=== PATIENT | female | born 1955 | race Caucasian/White ===

== ENCOUNTER → 2021-05-25 | Outpatient (CLI) | payer BC, OTHER ==
[2021-05-25 14:37] VITALS: BP 162/79; PULSE 79; TEMP 98; BMI 37.0
--- NOTE | 2021-05-25 15:00 | P.HPBAR ---
Bariatric H&P - History & Physicial H&P Date: 05/25/21 History & Physicial: Visit/CC: initial clinic visit Patient initial contact: Initial weight: Initial weight in pounds: Height: 6 ft Initial BMI: Last weight: Current weight: 123.831 kg Current weight in pounds: 273.00 Current BMI: 37.0 [place] body weight (based on NIH guidelines): 72.575 kg Excess body weight loss: The patient is a 66 year-old F who presents for Bariatric Assessment. Patient here today for bariatric evaluation. Patient with BMI 37.0. Patient is interested in sleeve gastrectomy. Patient states she has suffered with this elevated weight most of her life. 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 fib, coronary artery disease, psoriasis, thyroid cancer, lymphoma. Patient with history of previous smoking of cigarettes now gaping occasionally. No history of DVT dysphagia or GERD symptoms. Surgical history includes lymph node biopsy and open cholecystectomy. Patient with previous history of cardiac catheterization with angioplasty. States she has not followed up with a giant tire repairer or had a stress test in many years. Review of Systems The patient denies any acute changes in vision or hearing, no dysphagia or odynophagia, no chest pain or shortness of breath, no dysuria or hematuria, no headache, no runny nose, no rectal bleeding or melena, no unexplained weight loss Past Medical History Past Medical History: Cancer, Diabetes Mellitus, Hypertension Additional Past Medical History / Comment(s): hx of thyroid cancer History of Any Multi-Drug Resistant Organisms: None Reported Past Surgical History: Cholecystectomy Additional Past Surgical History / Comment(s): thyroidectomy Past Anesthesia/Blood Transfusion Reactions: No Reported Reaction Smoking Status: Former smoker Surgical - Exam Vital Signs Temp Pulse BP 98.0 F 79 162/79 05/25/21 14:32 05/25/21 14:32 05/25/21 14:32 Physical exam: General: Well-developed, well-nourished HEENT: Normocephalic, sclerae nonicteric Abdomen: Nontender, nondistended Extremities: No edema Neuro: Alert and oriented Bariatric Assessment & Plan (1) Morbid obesity Narrative/Plan: 66-year-old female with severe obesity BMI 37.0. Patient interested in surgical weight loss. The patient prefers sleeve gastrectomy. Risks and benefits of both sleeve gastrectomy and gastric bypass reviewed in detail. Patient will require preoperative EGD and preoperative cardiac clearance. Patient may require supervised weight loss as well. This will be clarified with her insurance company and the billing department. Will see the patient at the time of her EGD in the next few months. Status: Acute Bariatric Checklist Checklist: Plan: Checklist: EGD: 1. Hiatal hernia: 2. H. Pylori: HgbA1c: Vitamin D: Smoking: Primary care physician referral: Psychiatry clearance: Cardiology clearance: Sleep study: Diet journal: VTE risk score: VTE risk level: Rehab needs at discharge:
[2021-05-25 16:45] LABS: HCT 36.8 % (34.0-46.0); HGB 11.6 gm/dL (11.4-16.0); MCH 29.7 pg (25.0-35.0); MCHC 31.7 g/dL (31.0-37.0); MCV 93.8 fL (80.0-100.0); Mean Platelet Volume 7.5; Platelet Count 350 k/uL (150-450); RBC 3.92 m/uL (3.80-5.40); RDW 14.6 % (11.5-15.5); WBC 8.5 k/uL (3.8-10.6)
[2021-05-26 00:15] LABS: African American GFR (CKD) 105.6 (60.0-200.0); Albumin 4.4 g/dL (3.8-4.9); Albumin/Globulin Ratio 1.42 (1.60-3.17); Anion Gap 12.5 mmol/L (10.00-18.00); BUN/Creat Ratio 18.78 Ratio (12.00-20.00); Blood Urea Nitrogen 13.2 mg/dL (9.0-27.0); Calcium 8.9 mg/dL (8.7-10.3); Carbon Dioxide 24.5 mmol/L (20.0-27.5); Globulin 3.1 g/dL (1.6-3.3); Non-African American GFR(CKD) 91.1 (60.0-200.0); Potassium 4.1 mmol/L (3.5-5.5); Total Bilirubin 0.3 mg/dL (0.30-1.20); Total Protein 7.4 g/dL (6.2-8.2)
== END ==
LOC: BARWHC3 14:20
PROVIDERS: ATTEND Surgery
DX: E66.01 Morbid (severe) obesity due to excess calories (principal); E11.9 Type 2 diabetes mellitus without complications; I10 Essential (primary) hypertension; Z68.37 Body mass index [BMI] 37.0-37.9, adult; Z87.891 Personal history of nicotine dependence
CPT/HCPCS: 36415; 80053; 82306; 82607; 83036; 83540; 84425; 85027; 93005; 99211

== ENCOUNTER → 2021-05-26 | Outpatient (CLI) | payer BC, OTHER | END | disposition home or self-care (01) | LOC: LABWHC1 10:48 | PROVIDERS: ATTEND Surgery | DX: E66.01 Morbid (severe) obesity due to excess calories (principal); E55.9 Vitamin D deficiency, unspecified; K90.89 Other intestinal malabsorption | CPT/HCPCS: 36415; 82746 ==

== ENCOUNTER 2021-06-27 08:48 | Day surgery (SDC) | payer BC, OTHER ==
[2021-06-22 10:03] VITALS: BMI 36.3
[~2021-06-27 08:48] MED LIST: LACTATED RINGERS 1,000 ML IV SCH; LIDOCAINE 1% (10MG/ML) FOR IV START INTRADERMA PRN
[2021-06-27 09:12] VITALS: TEMP 98.1
[2021-06-27 09:19] LABS: Glucose,Whole Blood 157 mg/dL (75-99)
[2021-06-27] MEDS ORDERED: PROPOFOL 10 MG/ML 20 ML VIAL IV ONE (10:02)
--- NOTE | 2021-06-27 10:04 | P.GSHP ---
History of Present Illness H&P Date: 06/27/21 Chief Complaint: Reflux, presurgical Patient here today for upper endoscopy. Patient with rare episodes of reflux. Patient is being evaluated for sleep gastrectomy. No dysphagia. Past Medical History Past Medical History: Atrial Fibrillation, Cancer, Diabetes Mellitus, Hyperlipidemia, Hypertension Additional Past Medical History / Comment(s): hx of thyroid cancer. NEUROPATHY IN FEET. LYMPHOMA 2004? History of Any Multi-Drug Resistant Organisms: None Reported Past Surgical History: Section, Cholecystectomy, Heart Catheterization Additional Past Surgical History / Comment(s): thyroidectomy. COLONOSCOPY, Past Anesthesia/Blood Transfusion Reactions: No Reported Reaction Smoking Status: Vaper - Past Family History Father Family Medical History: Cancer Medications and Allergies Home Medications Medication Instructions Recorded Confirmed Type Atorvastatin [Lipitor] 40 mg PO DAILY 05/25/21 06/27/21 History Gabapentin 600 mg PO TID 05/25/21 06/27/21 History INSULIN LISPRO (humaLOG) [humaLOG] 100 unit SQ AC-BID 05/25/21 06/27/21 History Insulin Glargine,Hum.rec.anlog 100 unit SQ HS 05/25/21 06/27/21 History [Lantus Solostar Pen] Levothyroxine Sodium [Synthroid] 75 mcg PO DAILY 05/25/21 06/27/21 History Rivaroxaban [Xarelto] 20 mg PO DAILY 05/25/21 06/27/21 History Venlafaxine HCl [Effexor XR] 75 mg PO BID 05/25/21 06/27/21 History amLODIPine [Norvasc] 5 mg PO DAILY 05/25/21 06/27/21 History metFORMIN HCL [Glucophage] 1,000 mg PO BID 05/25/21 06/27/21 History Losartan Potassium 100 mg PO DAILY 05/29/21 06/27/21 History Metoprolol Succinate [Toprol XL] 100 mg PO DAILY 05/29/21 06/27/21 History Aspirin [[place] Aspirin EC] 81 mg PO DAILY 06/27/21 06/27/21 History Allergies Allergy/AdvReac Type Severity Reaction Status Date / Time No Known Allergies Allergy Verified 06/27/21 09:02 Surgical - Exam Vital Signs Temp Pulse Resp BP Pulse Ox 98.1 F 71 18 180/79 97 06/27/21 09:09 06/27/21 09:09 06/27/21 09:09 06/27/21 09:09 06/27/21 09:09 Physical exam: General: Well-developed, well-nourished HEENT: Normocephalic, sclerae nonicteric Abdomen: Nontender, nondistended Extremities: No edema Neuro: Alert and oriented Results - Labs Abnormal Lab Results - Last 24 Hours (Table) 06/27/21 Range/Units 09:15 POC Glucose (mg/dL) 157 H (75-99) mg/dL Assessment and Plan (1) GERD (gastroesophageal reflux disease) Narrative/Plan: 66-year-old female being scheduled for sleeve gastrectomy. We'll proceed with EGD at this time. Current Visit: Yes Status: Acute Code(s): K21.9 - GASTRO-ESOPHAGEAL REFLUX DISEASE WITHOUT ESOPHAGITIS SNOMED Code(s): 159653503
--- NOTE | 2021-06-27 10:12 | P.PCN ---
Date of Procedure: 06/27/21 Procedure(s) Performed: Preoperative Dx: GERD, presurgical Postoperative Dx: Gastritis Procedure: EGD with Bx Anesthesia: Sedation Endoscopist: Dr. Lewis Specimens: Antrum Endoscopic Procedure: The patient was on the endoscopy table in the left decubitus position. The Olympus gastroscope was inserted into the oropharynx and passed under direct visualization to the region of the third portion of the duodenum. From that point the scope was slowly withdrawn inspecting all surfaces carefully. There were no neoplastic inflammatory or polypoid lesions throughout the duodenum. The pylorus was widely patent. The stomach was carefully inspected. There was diffuse gastritis present. No ulcerations were seen. A biopsy of the antrum took place to rule out H. pylori. Retroflexion revealed a normal hiatus. The esophagus was then carefully examined. There were no neoplastic inflammatory or polypoid lesions throughout the visualized esophagus. The patient was then taken to the recovery room in stable condition per anesthesia guidelines. Recommendations: Begin antiacid therapy. Continue preoperative bariatric workup. Follow-up bariatric center.
[2021-06-27 10:20] VITALS: RESP 16
[2021-06-27 10:40] VITALS: BP 130/77; PULSE 65
== END 2021-06-27 11:05 | disposition home or self-care (01) ==
LOC: ORWHC2ENDO 08:48
PROVIDERS: ATTEND Surgery
DX: K29.50 Unspecified chronic gastritis without bleeding (principal); K21.9 Gastro-esophageal reflux disease without esophagitis; I48.91 Unspecified atrial fibrillation; E11.42 Type 2 diabetes mellitus with diabetic polyneuropathy; E78.5 Hyperlipidemia, unspecified; I10 Essential (primary) hypertension; Z85.850 Personal history of malignant neoplasm of thyroid; Z85.79 Personal history of other malignant neoplasms of lymphoid, hematopoietic and related tissues; I25.2 Old myocardial infarction; F41.9 Anxiety disorder, unspecified; F32.A Depression, unspecified; Z90.49 Acquired absence of other specified parts of digestive tract; Z98.891 History of uterine scar from previous surgery; Z98.890 Other specified postprocedural states; F17.290 Nicotine dependence, other tobacco product, uncomplicated; Z80.9 Family history of malignant neoplasm, unspecified; Z79.01 Long term (current) use of anticoagulants; Z79.84 Long term (current) use of oral hypoglycemic drugs; Z79.82 Long term (current) use of aspirin; Z79.4 Long term (current) use of insulin; Z79.899 Other long term (current) drug therapy
CPT/HCPCS: 88305; 43239; J2704

== ENCOUNTER → 2021-07-31 | Outpatient (CLI) | payer BC, OTHER ==
[2021-07-31 11:37] VITALS: BMI 35.4
== END ==
LOC: BARWHC3 08:52
PROVIDERS: ATTEND Surgery
DX: E66.01 Morbid (severe) obesity due to excess calories (principal); Z71.3 Dietary counseling and surveillance; Z68.35 Body mass index [BMI] 35.0-35.9, adult
CPT/HCPCS: 97804

== ENCOUNTER → 2022-02-27 | Outpatient (CLI) | payer BC, OTHER ==
[2022-02-27 13:51] VITALS: BP 153/72; PULSE 80; RESP 16; TEMP 98.2; BMI 35.1
--- NOTE | 2022-02-27 14:22 | P.BASOAP ---
Subjective Progress Note Date: 02/27/22 Principal diagnosis: Morbid obesity Patient returns for recheck. She is still preop for sleeve gastrectomy. No changes to her prior history and physical other than starting a new medication for psoriasis. She did obtain her cardiac clearance after a negative stress test. She saw her primary care physician yesterday who is supporting her decision to move forward with weight loss surgery. Patient is still vaping at this time. Objective - Vital Signs Vital signs: Vital Signs Temp 98.2 F 02/27/22 13:48 Pulse 80 02/27/22 13:48 Resp 16 02/27/22 13:48 BP 153/72 02/27/22 13:48 Pulse Ox FiO2 Intake & Output 02/26/22 02/27/22 02/27/22 18:59 06:59 18:59 Weight 117.48 kg - Exam Abdomen: Soft, nontender, nondistended Assessment/Plan (1) Morbid obesity Narrative/Plan: 66 yo female with severe obesity. Patient remains interested in surgical weight loss. Surgical consent form reviewed in detail with the patient. All questions answered. Await formal PCP letter. Will need nicotine testing preoperatively. Plan: Date: 02/27/22 Initial Weight: 117.48 kg Initial BMI: 35.1 Current Weight: 117.48 kg Current BMI: 35.1 Type of Surgery: Total Volume in Band: Previous Volume: Volume Removed: Volume Added: Band Size:
== END | disposition home or self-care (01) ==
LOC: BARWHC3 13:23
PROVIDERS: ATTEND Surgery
DX: E66.01 Morbid (severe) obesity due to excess calories (principal); Z68.35 Body mass index [BMI] 35.0-35.9, adult
CPT/HCPCS: 99211

== ENCOUNTER → 2022-10-02 | Outpatient (CLI) | payer BC, MEDICARE, OTHER ==
--- NOTE | 2022-10-02 14:30 | P.BASOAP ---
Subjective Progress Note Date: 10/02/22 Principal diagnosis: Obesity 67-year-old female returns for recheck. She was last seen in February of last year. Patient says that when she was considering surgery last year she got nervous and wanted to try losing it on her own again. She is down a few pounds. BMI today is 34.9. Patient has quit smoking but is still vaping. Patient says she is interested in proceeding with sleeve gastrectomy. No other changes to her previous history. Objective - Vital Signs Vital signs: Intake & Output 10/01/22 10/02/22 10/02/22 18:59 06:59 18:59 Weight 116.845 kg - Exam Abdomen: Soft, nontender, nondistended Assessment/Plan (1) Obesity (BMI 30.0-34.9) Narrative/Plan: 67-year-old female with obesity. Patient interested in proceeding with sleeve gastrectomy. Patient says she will stop vaping at this time. Surgical consent form previously reviewed. The risks of bleeding, infection, stenosis, stricture, leak, abscess, fistula formation, peritonitis, poor weight loss, reflux, vomiting, conversion to an open procedure, aborting sleeve gastrectomy, [place], PE, DVT, and were discussed. The patient understands and wishes to proceed. Plan: Date: Initial Weight: 117.48 kg Initial BMI: Current Weight: 116.845 kg Current BMI: Type of Surgery: Total Volume in Band: Previous Volume: Volume Removed: Volume Added: Band Size:
[2022-10-02 14:57] VITALS: BMI 34.9
== END ==
LOC: BARWHC3 13:55
PROVIDERS: ATTEND Surgery
DX: E66.9 Obesity, unspecified (principal); F17.290 Nicotine dependence, other tobacco product, uncomplicated
CPT/HCPCS: 99211

== ENCOUNTER → 2022-10-02 | Outpatient (CLI) | payer MEDICARE ==
[2022-10-02 21:35] LABS: HCT 39.3 % (37.2-46.3); HGB 12.4 g/dL (12.0-15.0); MCH 28.5 pg (27.0-32.0); MCHC 31.6 g/dL (32.0-37.0); MCV 90.3 fL (80.0-97.0); Mean Platelet Volume 11.2 fL (9.5-12.2); NRBC Per 100 WBC 0 /100 WBCS (0.0-0.0); Platelet Count 395 X 10*3/uL (140-440); RBC 4.35 X 10*6/uL (4.10-5.20); WBC 8.73 X 10*3/uL (4.50-10.00)
[2022-10-02 23:21] LABS: African American GFR (CKD) 91.6 (60.0-200.0); Albumin 4.5 g/dL (3.8-4.9); Albumin/Globulin Ratio 1.46 (1.60-3.17); BUN/Creat Ratio 20.99 Ratio (12.00-20.00); Blood Urea Nitrogen 16.5 mg/dL (9.0-27.0); Calcium 9.8 mg/dL (8.7-10.3); Carbon Dioxide 22.9 mmol/L (20.0-27.5); Globulin 3.1 g/dL (1.6-3.3); Potassium 5.1 mmol/L (3.5-5.5); Total Bilirubin 0.5 mg/dL (0.30-1.20); Total Protein 7.5 g/dL (6.2-8.2)
== END | disposition home or self-care (01) ==
LOC: LABWHC1 14:29
PROVIDERS: ATTEND Surgery
DX: E55.9 Vitamin D deficiency, unspecified (principal); K90.89 Other intestinal malabsorption; R94.31 Abnormal electrocardiogram [ECG] [EKG]
CPT/HCPCS: 36415; 80053; 82306; 82607; 82746; 83540; 84425; 85027; 93005

== ENCOUNTER → 2022-10-19 | Outpatient (CLI) | payer MEDICARE | END | disposition home or self-care (01) | LOC: LABWHC1 12:18 | PROVIDERS: ATTEND Surgery | DX: Z71.51 Drug abuse counseling and surveillance of drug abuser (principal) | CPT/HCPCS: 80323 ==

== ENCOUNTER → 2024-03-17 | Outpatient (CLI) | payer MEDICARE ==
[2024-03-17 15:17] VITALS: BP 162/73; PULSE 86; RESP 16; TEMP 97.6; BMI 34.5
--- NOTE | 2024-03-17 15:48 | P.BASOAP ---
Subjective Progress Note Date: 03/17/24 Principal diagnosis: Morbid obesity 69-year-old female last seen here 2 years ago. Since her last visit the patient had a CT chest for screening and was found to have a recurrence of her lymphoma. Patient was placed on Rituxan and her most recent PET scan from December showed no active disease. Patient follows with Dr. Bowie at [facility]. Patient remains interested in weight loss surgery. Patient's BMI today however 34.5. Patient is still vaping. Patient states she is also interested in discussing GLP-1 agonist medications with her primary care team although she has a personal history of thyroid cancer underwent lobectomy in the past. She is unsure whether that is something she can do or not. She has an upcoming colonoscopy in April with GI for history of colon polyps. Otherwise normal changes to her previous history. Objective - Vital Signs Vital signs: Vital Signs Temp 97.6 F 03/17/24 15:13 Pulse 86 03/17/24 15:13 Resp 16 03/17/24 15:13 BP 162/73 03/17/24 15:13 Pulse Ox FiO2 Intake & Output 03/16/24 03/17/24 03/17/24 18:59 06:59 18:59 Weight 115.666 kg - Exam Abdomen: Soft, nontender, nondistended Assessment/Plan (1) Obesity (BMI 30.0-34.9) Narrative/Plan: 69-year-old female with BMI of 34.5. Patient remains interested in sleeve pacheco rectomy. Discussed with patient that we would contact her oncologist to obtain clearance for the surgery. Discussed that she would have to be reweighed at a BMI of over 35 prior to surgery. Discussed that all vaping and smoking would have to be stopped before scheduling. Patient also states she would like to discuss with her primary care team whether it is an absolute contraindication to trying a GLP-1 agonist. She will make an appointment discussed that with them. For now follow-up in the bariatric center in 2 months to reassess candidacy for surgery. Plan: Date: 03/17/24 Initial Weight: 117.48 kg Initial BMI: 35.1 Current Weight: 115.666 kg Current BMI: 34.5 Type of Surgery: Total Volume in Band: Previous Volume: Volume Removed: Volume Added: Band Size:
== END ==
LOC: BARWHC3 15:08
PROVIDERS: ATTEND Surgery
DX: E66.01 Morbid (severe) obesity due to excess calories (principal); Z68.34 Body mass index [BMI] 34.0-34.9, adult; Z86.0100 Personal history of colon polyps, unspecified; Z85.850 Personal history of malignant neoplasm of thyroid; Z98.890 Other specified postprocedural states
CPT/HCPCS: 99211

== ENCOUNTER → 2024-04-20 | Outpatient (CLI) | payer MEDICARE ==
[2024-04-20 13:23] VITALS: BMI 35.4
== END ==
LOC: BARWHC3 12:53
PROVIDERS: ATTEND Surgery
DX: E66.01 Morbid (severe) obesity due to excess calories (principal); Z71.3 Dietary counseling and surveillance; Z68.35 Body mass index [BMI] 35.0-35.9, adult
CPT/HCPCS: 97804

== ENCOUNTER → 2024-06-02 | Outpatient (CLI) | payer MEDICARE ==
[2024-06-02 13:27] VITALS: BP 131/88; PULSE 82; RESP 16; TEMP 97.8; BMI 34.8
--- NOTE | 2024-06-02 16:33 | P.BASOAP ---
Subjective Progress Note Date: 06/02/24 Principal diagnosis: Morbid obesity Patient returns for recheck. Still being worked up for possible sleeve gastrectomy. We did receive medical clearance from her oncologist related to her previous lymphoma. She had a recent colonoscopy showing a few benign polyps. Patient is still using a vape pen. She had stopped her antiacids that were previously described for gastritis seen on EGD. Patient still very interested in proceeding with sleeve gastrectomy. BMI today 34.9. Objective - Vital Signs Vital signs: Vital Signs Temp 97.8 F 06/02/24 13:23 Pulse 82 06/02/24 13:23 Resp 16 06/02/24 13:23 BP 131/88 06/02/24 13:23 Pulse Ox FiO2 Intake & Output 06/01/24 06/02/24 06/02/24 18:59 06:59 18:59 Weight 116.573 kg - Exam Abdomen: Soft, nontender, nondistended Assessment/Plan (1) Obesity (BMI 30.0-34.9) Narrative/Plan: 69-year-old female with ongoing obesity issues. Patient still interested in bariatric surgery in the form of laparoscopic da Christopher assisted sleeve gastrectomy. We discussed the surgical consent form and reviewed that in detail with her. Patient states that her weight has usually been above a BMI of 35. She is willing to stop the use of the vape pen for surgery. Informed her that this would need to be held at least 2 months postop as well. Will have the patient come back in in 1 month to check the urine nicotine and for reweighing. BMI needs to be over 35 to proceed with surgery. Plan: Date: 06/02/24 Initial Weight: 117.48 kg Initial BMI: 35.1 Current Weight: 116.573 kg Current BMI: 34.8 Type of Surgery: Total Volume in Band: Previous Volume: Volume Removed: Volume Added: Band Size:
== END ==
LOC: BARWHC3 13:10
PROVIDERS: ATTEND Surgery
DX: E66.9 Obesity, unspecified (principal); Z68.34 Body mass index [BMI] 34.0-34.9, adult
CPT/HCPCS: 99211